=== PATIENT | male | born 1970 | race African-American/Black ===

== ENCOUNTER 2021-11-07 00:40 | Emergency (ER) | payer SELFPAY ==
--- NOTE | 2021-11-07 01:50 | ER ---
Nurse's Notes [facility] Name: Maicol Kuhn Age: 51 yrs Sex: Male : 1970 Arrival Date: 11/07/2021 Time: 00:45 Bed 5 Private MD: Diagnosis: Unspecified perforation of tympanic membrane, right ear Presentation: 11/07 01:00 Chief complaint: Patient states: the patient was told he has earwax. earlier today he st1 placed hydrogen peroxide in his right ear and inserted a Qtip in the ear. He denies pain however he has muffled hearing that has not gotten any better. Coronavirus screen: Vaccine status: Patient reports being unvaccinated. Client denies travel out of the [place] in the last 14 days. Ebola Screen: No symptoms or risks identified at this time. Initial Sepsis Screen: Does the patient meet any 2 criteria? No. Patient's initial sepsis screen is negative. Does the patient have a suspected source of infection? No. Patient's initial sepsis screen is negative. Risk Assessment: Do you want to hurt yourself or someone else? Patient reports no desire to harm self or others. Onset of symptoms was November 06, 2021. 01:00 Method Of Arrival: Ambulatory st1 01:00 Acuity: PASCALE 4 st1 Triage Assessment: 01:02 General: Appears in no apparent distress. uncomfortable, obese, Behavior is calm, st1 cooperative. Pain: Denies pain. Historical: - Allergies: 01:02 No Known Allergies; st1 - PMHx: 01:02 None; st1 - Immunization history:: Adult Immunizations not up to date, Flu vaccine is not up to date. - Social history:: Smoking status: Patient denies any tobacco usage or history of. Patient/guardian denies using alcohol, street drugs, IV drugs, tobacco products. Screenin:03 Abuse screen: Denies threats or abuse. Nutritional screening: No deficits noted. st1 Tuberculosis screening: No symptoms or risk factors identified. Fall Risk None identified. No fall in past 12 months (0 pts). No secondary diagnosis (0 pts). No IV (0 pts). Ambulatory Aid- None/Bed Rest/Nurse Assist (0 pts). Gait- Normal/Bed Rest/Wheelchair (0 pts) Mental Status- Oriented to own ability (0 pts). Total Cristina Fall Scale indicates No Risk (0-24 pts). Assessment: 01:04 Reassessment: Patient appears in no apparent distress at this time. No changes from st1 previously documented assessment. Patient is alert, oriented x 3, equal unlabored respirations, skin warm/dry/pink. 01:55 Reassessment: Patient is alert, oriented x 3, equal unlabored respirations, skin al4 warm/dry/pink. Vital Signs: 01:04 BP 116 / 82; Pulse 98; Resp 16; Temp 98.4; Pulse Ox 98% on R/A; Weight 124.74 kg; al4 Height 5 ft. 5 in. (165.10 cm); Pain 0/10; 01:04 Body Mass Index 45.76 (124.74 kg, 165.10 cm) al4 ED Course: 00:45 Patient arrived in ED. 00:51 [facility] pm1 00:51 Jose Barboza MD is Attending Physician. pm1 00:52 Destinee Goff RN is Primary Nurse. st1 01:02 Triage completed. st1 01:02 Arm band placed on right wrist. st1 01:03 Patient has correct armband on for positive identification. Bed in low position. Call st1 light in reach. Side rails up X 1. 01:03 No provider procedures requiring assistance completed. st1 01:40 Marj Nuñez MD is Referral Physician. pm1 01:55 Patient did not have IV access during this emergency room visit. al4 Administered Medications: No medications were administered Outcome: 01:49 Discharge ordered by . pm1 01:55 Discharged to home ambulatory. al4 01:55 Condition: stable 01:55 Discharge instructions given to patient, Instructed on discharge instructions, follow up and referral plans. medication usage, Demonstrated understanding of instructions, follow-up care, medications. 01:59 Patient left the ED. al4 Signatures: Roland Hall NP DIRECTOR MEETINGS pm1 Shantel Benton Alireza Black al4 Destinee Goff, ANGEL RN st1 Corrections: (The following items were deleted from the chart) 01:08 01:04 Pulse 98bpm; Resp 16bpm; Pulse Ox 98% RA; Temp 98.4F; 124.74 kg; Height 5 ft. 5 al4 in.; BMI: 45.7; Pain 0/10; st1
--- NOTE | 2021-11-07 01:50 | EDPHYS ---
Physician Documentation [facility] Name: Maicol Kuhn Age: 51 yrs Sex: Male : 1970 Arrival Date: 11/07/2021 Time: 00:45 Bed 5 Private MD: ED Physician Jose Barboza HPI: 11/07 01:07 This 51 yrs old Black Male presents to ER via Ambulatory with complaints of Ear problem.pm1 01:07 The patient presents with decreased hearing to left ear. The complaints affect the left pm1 ear. Onset: The symptoms/episode began/occurred today. Modifying factors: the symptoms are aggravated by ear wax and q-tip. Associated signs and symptoms: Pertinent negatives: ear pain. Severity of symptoms: in the emergency department the symptoms are unchanged. The patient has not experienced similar symptoms in the past. The patient has been recently seen by a physician: Patient told at work physical that he has lots of ear wax to left ear so he put hydrogen peroxide in his left ear and then started using a q-tip to try to remove it. Then he had a hard time hearing from his left ear. Historical: - Allergies: 01:02 No Known Allergies; st1 - PMHx: 01:02 None; st1 - Immunization history:: Adult Immunizations not up to date, Flu vaccine is not up to date. - Social history:: Smoking status: Patient denies any tobacco usage or history of. Patient/guardian denies using alcohol, street drugs, IV drugs, tobacco products. ROS: 01:07 Constitutional: Negative for fever, chills, and weight loss. pm1 01:07 Cardiovascular: Negative for chest pain, palpitations, and edema, Respiratory: Negative for shortness of breath, cough, wheezing, and pleuritic chest pain, Neuro: Negative for headache, weakness, numbness, tingling, and seizure. 01:07 ENT: Positive for hearing loss, Negative for drainage from ear(s), ear pain. 01:07 All other systems are negative. Exam: 01:07 Constitutional: This is a well developed, well nourished patient who is awake, alert, pm1 and in no acute distress. Head/Face: Normocephalic, atraumatic. 01:07 Skin: Warm, dry with normal turgor. Normal color with no rashes, no lesions, and no evidence of cellulitis. MS/ Extremity: Pulses equal, no cyanosis. Neurovascular intact. Full, normal range of motion. 01:07 ENT: External ear(s): no acute changes, Ear canal(s): cerumen impaction, occluding the left ear canal, TM's: not visable, because of cerumen, Examination of the other ear shows no obvious abnormality. 01:07 Cardiovascular: Exam negative for acute changes, Rate: normal, Rhythm: regular, Pulses: no pulse deficits are appreciated. 01:07 Respiratory: Exam negative for acute changes, respiratory distress, shortness of breath. 01:07 Neuro: Exam negative for acute changes, Orientation: is normal, Mentation: is normal, Motor: moves all fours. Vital Signs: 01:04 BP 116 / 82; Pulse 98; Resp 16; Temp 98.4; Pulse Ox 98% on R/A; Weight 124.74 kg; al4 Height 5 ft. 5 in. (165.10 cm); Pain 0/10; 01:04 Body Mass Index 45.76 (124.74 kg, 165.10 cm) al4 MDM: 01:03 Patient medically screened. pm1 01:12 Data reviewed: vital signs. Data interpreted: Pulse oximetry: on room air is 98 %. pm1 Interpretation: normal. 01:36 Counseling: I had a detailed discussion with the patient and/or guardian regarding: the pm1 historical points, exam findings, and any diagnostic results supporting the discharge/admit diagnosis, the need for outpatient follow up, to return to the emergency department if symptoms worsen or persist or if there are any questions or concerns that arise at home. Administered Medications: No medications were administered Disposition: 04:20 Co-signature as Attending Physician, Jose Barboza MD. [email or web address] Disposition Summary: 11/07/21 01:49 Discharge Ordered Location: Home pm1 Problem: new pm1 Symptoms: have improved pm1 Condition: Stable pm1 Diagnosis - Unspecified perforation of tympanic membrane, right ear pm1 Followup: pm1 - With: Emergency Department - When: As needed - Reason: Worsening of condition Followup: pm1 - With: Marj Nuñez MD - When: 2 - 3 days - Reason: Recheck today's complaints, Continuance of care, Re-evaluation by your physician Discharge Instructions: - Discharge Summary Sheet pm1 - Eardrum Rupture, Adult pm1 Forms: - Medication Reconciliation Form pm1 - Thank You Letter pm1 - Antibiotic Education pm1 - Prescription Opioid Use pm1 Prescriptions: - ofloxacin 0.3 % Otic drops - instill 10 drop by OTIC route 2 times per day for 14 days; 1 vial; Refills: 0, pm1 Product Selection Permitted - Amoxicillin 500 mg Oral Capsule - take 1 capsule by ORAL route every 8 hours for 10 days; 30 tablet; Refills: 0, pm1 Product Selection Permitted Signatures: Roland Hall NP [employer] OPERATOR pm1 Jose Barboza MD MD 7 Destinee Goff RN RN st1
[2021-11-07 02:03] VITALS: BP 116/82; TEMP 98.4; O2SAT 98
== END 2021-11-07 01:59 | disposition home or self-care (01) ==
LOC: ER 00:40
DX: H72.91 Unspecified perforation of tympanic membrane, right ear (principal)
CPT/HCPCS: 99281